=== PATIENT | female | born 1960 | race Caucasian/White ===

== ENCOUNTER → 2018-08-18 | Outpatient (CLI) | payer OTHER | LOC: M RAD 09:16 | DX: Z12.31 Encounter for screening mammogram for malignant neoplasm of breast (principal) | CPT/HCPCS: 77067 ==

== ENCOUNTER 2019-09-07 20:09 | Emergency (ER) | payer OTHER ==
[~2019-09-07] VITALS: Ht 167.6 cm; Wt 63.6 kg
[2019-09-07] MEDS ORDERED: NS 1,000 ML IV ONE (21:00)
[2019-09-07] MEDS ORDERED: METOCLOPRAMIDE INJ 10MG/2ML VIAL (J2765) IV ONE (21:00)
[2019-09-07] MEDS ORDERED: ACETAMINOPHEN 500 MG TAB PO ONE (21:00)
[2019-09-07] MEDS ORDERED: KETOROLAC 30 MG/ML VIAL (J1885) IV ONE (21:00)
[2019-09-07] MEDS ORDERED: diphenhydrAMINE INJ 50MG/ML VIAL (J1200) IV ONE (21:00)
[2019-09-07 21:37] LABS: BASO % 0.2 % (0.0-1.0); HEMATOCRIT 41.2 % (36.0-47.0); HEMOGLOBIN 13.6 g/dl (12.0-15.5); LYMPH # 1.2 10^3/uL (1.5-5.0); LYMPH % 10.3 % (24.0-44.0); MEAN CORPUSCULAR HEMOGLOBIN 29.9 pg (27.0-33.0); MEAN CORPUSCULAR VOLUME 90.5 fl (80.0-96.0); MONO # 0.3 10^3/uL (0.0-0.8); MONO % 2.9 % (0.0-5.0); NEUTROPHILS # 9.7 10^3/uL (1.5-8.5); NEUTROPHILS % 86.1 % (36.0-66.0); PLATELET COUNT, AUTOMATED 279 10^3/uL (150-450); RED BLOOD COUNT 4.55 10^6/uL (4.00-5.40); WHITE BLOOD COUNT 11.3 10^3/uL (4.0-10.0)
[2019-09-07] MEDS ORDERED: ATOR1TAB19 PO (21:39)
[2019-09-07] MEDS ORDERED: ESTR3TA PO (21:39)
[2019-09-07] MEDS ORDERED: LISI10TA4 PO (21:39)
[2019-09-07] MEDS ORDERED: SYNT100T PO (21:39)
[2019-09-07 22:39] VITALS: BP 139/82
== END 2019-09-07 22:52 | disposition home or self-care (01) ==
LOC: M ED 20:09
DX: G43.909 Migraine, unspecified, not intractable, without status migrainosus (principal); I10 Essential (primary) hypertension; F17.200 Nicotine dependence, unspecified, uncomplicated; Z79.890 Hormone replacement therapy; Z79.899 Other long term (current) drug therapy; Z88.8 Allergy status to other drugs, medicaments and biological substances
CPT/HCPCS: 85025; 96361; 96374; 96375; 99284; J1200; J1885; J2765

== ENCOUNTER → 2019-11-09 | Outpatient (CLI) | payer OTHER ==
[~2019-11-09] MED LIST: ATOR1TAB19 PO; ESTR3TA PO; LISI10TA4 PO; SYNT100T PO
--- NOTE | 2019-11-09 12:19 | REPMRS ---
Patient History The patient states she had a clinical breast exam in 2018. No known family history of cancer. Taking estrogen for 26 years. Taking unspecified hormones for 36 years. Digital Woman Screen Mammo: November 09, 2019 - Exam #: [id number] Bilateral CC and MLO view(s) were taken. Technologist: Sonali Cancino, Technologist Prior study comparison: August 18, 2018, bilateral digital mammo screening bilat, performed at [facility]. September 17, 2016, bilateral digital mammo screening bilat, performed at [facility]. FINDINGS: There are scattered fibroglandular densities. There has been no change in the appearance of the mammogram from the prior studies. There is a mild amount of scattered fibroglandular density which is fairly symmetric. There is no interval development of dominant mass, architectural distortion, or grouped microcalcification suggestive of malignancy. Assessment: BI-RADS/ACR category 1 mammogram. Negative Mammogram. Recommendation Routine screening mammogram of both breasts in 1 year (for women over age 40). This patient's Lifetime Breast Cancer Risk is estimated at 5.6 %. This mammogram was interpreted with the aid of an FDA-approved computer-aided dectection system. Electronically Signed By: Kj Yanes MD 11/09/19 [id number]
== END ==
LOC: M WHC 10:59
PROVIDERS: ATTEND Family Medicine
DX: Z12.31 Encounter for screening mammogram for malignant neoplasm of breast (principal)

== ENCOUNTER 2020-05-09 21:34 | Emergency (ER) | payer OTHER ==
[~2020-05-09] VITALS: Ht 165.1 cm; Wt 68.2 kg
[2020-05-09 22:24] LABS: HEMATOCRIT 40.6 % (36.0-47.0); HEMOGLOBIN 13.7 g/dl (12.0-15.5); MEAN CORPUSCULAR HEMOGLOBIN 30.6 pg (27.0-33.0); MEAN CORPUSCULAR HGB CONC 33.7 g/dl (32.0-36.5); MEAN CORPUSCULAR VOLUME 90.8 fl (80.0-96.0); PLATELET COUNT, AUTOMATED 307 10^3/uL (150-450); RED BLOOD COUNT 4.47 10^6/uL (4.00-5.40); WHITE BLOOD COUNT 11.2 10^3/uL (4.0-10.0)
[2020-05-09 22:50] LABS: BLOOD UREA NITROGEN 22 MG/DL (7-18); C REACTIVE PROTEIN QUANTITATIV < 0.30 MG/DL (0.00-0.30); CALCIUM LEVEL 9.7 MG/DL (8.8-10.2); CARBON DIOXIDE LEVEL 25 MEQ/L (21-32); CHLORIDE LEVEL 107 MEQ/L (98-107); GLOMERULAR FILTRATION RATE > 60.0 (>45); GLUCOSE, FASTING 145 MG/DL (70-100); POTASSIUM SERUM 4.1 MEQ/L (3.5-5.1); SODIUM LEVEL 137 MEQ/L (136-145)
[2020-05-09 22:55] LABS: ERYTHROCYTE SEDIMENTATION RATE 2 mm/hr (0-30)
[2020-05-09] MEDS ORDERED: diphenhydrAMINE 50MG/ML VIAL (J1200) IV STA (23:28)
[2020-05-09] MEDS ORDERED: KETOROLAC 30 MG/ML 1ML VIAL IV ONE (23:30)
[2020-05-09] MEDS ORDERED: ONDANSETRON 4MG/2ML VIAL IV ONE (23:30)
[2020-05-09] MEDS ORDERED: NS 1,000 ML IV ONE (23:30)
[2020-05-10] MEDS ORDERED: METOCLOPRAMIDE INJ 10MG/2ML VIAL (J2765 PER 1) IV ONE (00:45)
[2020-05-10 01:26] VITALS: BP 160/69
== END 2020-05-10 01:44 | disposition home or self-care (01) ==
LOC: M ED 21:34
DX: G43.909 Migraine, unspecified, not intractable, without status migrainosus (principal); E03.9 Hypothyroidism, unspecified; Z79.899 Other long term (current) drug therapy; Z88.8 Allergy status to other drugs, medicaments and biological substances
CPT/HCPCS: 80048; 85027; 85652; 86140; 96361; 96374; 96375; 99284; J1200; J1885; J2405; J2765

== ENCOUNTER → 2020-09-03 | Outpatient (REF) | payer OTHER ==
[2020-09-03 13:35] LABS: APPEARANCE, URINE CLEAR (CLEAR); BACTERIA, URINE AUTO NEGATIVE (NEGATIVE); BILIRUBIN, URINE AUTO NEGATIVE (NEGATIVE); BLOOD, URINE BLOOD 1+ (NEGATIVE); COLOR, URINE YELLOW (YELLOW); GLUCOSE, URINE (UA) AUTO NEGATIVE (NEGATIVE); KETONE, URINE AUTO NEGATIVE (NEGATIVE); LEUKOCYTE ESTERASE, URINE AUTO NEGATIVE (NEGATIVE); MUCUS, URINE SMALL (NEGATIVE); NITRITE, URINE AUTO NEGATIVE (NEGATIVE); PROTEIN, URINE AUTO NEGATIVE (NEGATIVE); RBC, URINE AUTO 2 /HPF (0-3); SQUAMOUS EPITHELIAL CELL UR AU 0 /HPF (0-6); UROBILINOGEN, URINE AUTO 0.2 mg/dL (0.0-2.0); WBC, URINE AUTO 0 /HPF (0-3)
[2020-09-03 13:36] LABS: BASO % 0.6 % (0.0-1.0); EOS # 0.1 10^3/uL (0.0-0.5); EOS % 1.2 % (0.0-3.0); HEMATOCRIT 42.5 % (36.0-47.0); HEMOGLOBIN 13.8 g/dl (12.0-15.5); MEAN CORPUSCULAR HGB CONC 32.5 g/dl (32.0-36.5); MEAN CORPUSCULAR VOLUME 92.4 fl (80.0-96.0); MONO # 0.6 10^3/uL (0.0-0.8); MONO % 9.4 % (0.0-5.0); NEUTROPHILS # 3.9 10^3/uL (1.5-8.5); NEUTROPHILS % 58.5 % (36.0-66.0); PLATELET COUNT, AUTOMATED 261 10^3/uL (150-450); WHITE BLOOD COUNT 6.6 10^3/uL (4.0-10.0)
[2020-09-03 14:03] LABS: ERYTHROCYTE SEDIMENTATION RATE 3 mm/hr (0-30)
[2020-09-03 14:05] LABS: CREATININE,RANDOM URINE 98.1 MG/DL
[2020-09-03 14:07] LABS: C REACTIVE PROTEIN QUANTITATIV < 0.30 MG/DL (0.00-0.30); COMPLEMENT C3 99 MG/DL (90-180); COMPLEMENT C4 24 MG/DL (10-40)
[2020-09-04 10:58] LABS: DRVV SCREEN 34.8 SEC
[2020-09-04 11:03] LABS: PTT LUPUS TYPE ANTICOAG SCREEN 0.9 (0-1.2)
[2020-09-06 06:07] LABS: ANA (HEP2) Positive (.); ANTI CENTROMERE ANTIBODY <0.2 AI (0.0-0.9); ANTI DS-DNA AB Positive (Negative); ANTI SCLERODERMA ANTIBODIES <0.2 AI (0.0-0.9); ANTI-HISTONE ANTIBODIES 0.3 Units (0.0-0.9); BETA-2 GLYCOPROTEIN I ABY IGA <9 (0-25); BETA-2 GLYCOPROTEIN I ABY IGG <9 (0-20); BETA-2 GLYCOPROTEIN I ABY IGM <9 (0-32); CARDIOLIPIN IGA ANTIBODY <9 APL U/mL (0-11); CARDIOLIPIN IGG ANTIBODY <9 GPL U/mL (0-14); CARDIOLIPIN IGM ANTIBODY <9 MPL U/mL (0-12); COMPLEMENT TOTAL (CH50) > 60 U/mL (>41); SSA SJOGRENS A <0.2 AI (0.0-0.9); SSB SJOGRENS B <0.2 AI (0.0-0.9)
== END ==
LOC: M SFHCRHEU 10:32
PROVIDERS: ATTEND Internal Medicine
DX: R76.8 Other specified abnormal immunological findings in serum (principal)
CPT/HCPCS: 81001; 82570; 83520; 85025; 85652; 85730; 86038; 86140; 86146; 86147; 86160; 86162; 86225; 86235; 86255; G0463

== ENCOUNTER 2020-10-25 16:11 | Observation (INO) | payer OTHER ==
[~2020-10-25] VITALS: Ht 167.6 cm; Wt 130.0 kg
[~2020-10-25 16:11] MED LIST changes: +LISI10TA22 PO; -LISI10TA4 PO
[2020-10-25] MEDS ORDERED: CELE1CAP9 PO (16:20)
--- OUTSIDE RECORDS SUMMARY | 2020-10-25 16:20 | CCD ---
Author Author [facility] Organization [facility] Address Unknown Phone Unavailable Care Team Providers Care Investment Representative Name Role Phone Kaila Lr PROBLEMS Type Condition ICD9-CM Code [id number] Code Onset Dates Condition S tatus SNOMED Code Notes Problem Osteoarthritis of hand, unsp ecified laterality, unspecified osteoarthritis type M19.049 Active Problem Generalized osteoarthritis M15.9 Active 8999 ALLERGIES Allergen (clinical drug ingredient) Drug/Non Drug Allergy do cumented on EMR Reaction Allergy Type Onset Date Status sumatriptan Imitrex([facility] Code:[address]-12) Possible seizure Drug All ergy Active Wheat/Grain Unknown Non Drug Allergy Active Mold Unknown Non Drug Allergy Active ENCOUNTERS from 1959 to 2020-09-12 Encounter Location Date Provider Diagnosis [facility] Rheumatology [address] [place] [address] Aug, Kaila Lr 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 No Points 0 Interpretation Negative Tobacco Use: Question Answer Notes Are you a: current smoker Smokes inconsistentl y - 4x/year REASON FOR REFERRAL No Information VITAL SIGNS Weight 137.8 lbs Aug, Weight-kg 62.5 kg Aug, Height 66 in Aug, BMI 22.24 kg/m2 Aug, Heart Rate 66 /min Aug, Respiratory Rate 18 /min Aug, Temperature 97.0 degrees Fahrenheit Aug, Oximetry 97 Aug, Blood pressure systolic 132 mm Hg Aug, Blood pressure diastolic 86 mm Hg Aug, MEDICATIONS Medication SIG (Take, Route, Frequency, Duration) Notes Start Da te End Date Status Synthroid 100 MCG 1 tablet in the morning on a n empty stomach Orally Once a day for 30 day(s) Active Lisinopril 10 MG 1 tablet Orally Once a day for 30 day(s) Active Acetaminophen 500 MG 2 capsule as needed Orally every as needed for 30 days Aug, Active Turmeric - as directed Active Atorvastatin Calcium 10 MG 1 tablet Orally Once a day for 30 day(s) Active Celecoxib 200 MG 1 capsule with food Orally Twice a day for 30 days Active Ibuprofen 200 MG 1 tablet with food or milk as needed Ora lly Three times a day Active Famotidine 40 MG 1 tablet at bedtime Orally Once a day for 30 day(s) Active PROCEDURES No Information RESULTS REASON FOR VISIT Patient is present today for a new patient appointment, c/o bumps on all joints, c/o body pain all over MEDICAL (GENERAL) HISTORY Type Description Date Medical History Hypothyroidism Medical History Hyperlipidemia Medical History Migraines / Headaches Medical History Hypertension 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 Medical History Osteoarthritis Medical History Menopausal disorder Medical History Seizure (2010) Medical History Colon polyps Medical History Bilateral Carpal tunnel syndrome Medical History of first child (1983) Medical History of second child (1985) Medical History MRI right shoulder(04/20/2013) Medical History MRI left knee (06/16/2004) Medical History X-ray hip-DDD (07/20/2013) Medical History Total Hysterectomy Surgical History Left shoulder repair 01/31/2018 Surgical History Colonoscopy-negative results, done every 5 years 02/2016 Surgical History Total hysterectomy and oopherectomy Surgical History Right and left shoulder/ numerous Surgical History Left knee replacement Surgical History Carpal tunnel bilateral wrist 2001 Surgical History Right ovary removed 1978 Surgical History Left ovary cyst removed 1984 Surgical History Left shoulder Synovial chondromatosis di agnosis 11/03/[address] right clavicle 01/26/2002 Surgical History Second left shoulder surgery 2018 Surgical History Thyroid 11/23/2018 Surgical History Thyroid 1989 Hospitalization History Surgical related Hospitalization History Migraine 10/2018 Hospitalization History Migrain 04/2020 Goals Section No Information Health Concerns No Information MEDICAL EQUIPMENT No Information MENTAL STATUS No Information FUNCTIONAL STATUS No Information ASSESSMENTS Encounter Date Diagnosis Assessment Notes Treatment Notes Treatm ent Clinical Notes Aug, 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 Explained the diagnosis of Synovial Chondromatosis in detail. This clinical presentation is atypical as it appears that there is synovial chondromatosis in more than 1 joint (confirmed evidence in the bilateral shoulders). - During the office visit, I had a long discussion and counseling session concerning the Synovial Chondromatosis. Counseling provided on the disease course, symptomatology, complications, and prognosis of Synovial Chondromatosis. The underlying etiology of the Synovial Chondromatosis is unclear. Clarified with the patient that synovial chondromatosis is not associated with rheumatoid arthritis and is not rheumatoid variant. - Discussed the importance of a healthy, well balanced life style and making healthy choices. The definitive treatment of synovial chondromatosis would be removal of the synovium, which would require a surgical intervention. - Discussed the possible current treatment options for the joint symptomatology; will monitor medically, at this time. Recommended the increase of Celebrex 200 mg daily to 200 mg twice daily, at this time. - Based on my current understanding of the disease, I am unaware that there is process to change the course of the disease. The patient noted that when she was on the trial of Plaquenil, her overall joint symptoms improved. However, it is unclear that the synovial chondromatosis would benefit from immunosuppressive therapy. Discussed with the patient that prior to the next appointment, will investigate any evidence to support this treatment modality. - The patient was instructed to manage the symptomatology and monitor closely for worsening symptoms. She was agreeable and expressed understanding of the plan. All questions and concerns were addressed. Aug, Positive DILMA (antinuclear antibody) (ICD-10 - R7 6.8) Will perform further investigation of possible underlying connective tissue disease, given the findings of positive DILMA (1:320) and history of positive ARMATURE CONNECTOR antibodies. Will repeat the DILMA to r/o false positive and obtain CBC w/ diff, complement levels (C3, C4, CH50), anti-castro, anti-dsDNA, SSA (anti-Ro), SSB (anti-La), ribonucleoprotein (ARMATURE CONNECTOR), centromere antibodies, anti-histone, anti-topoisomerase I, antiphospholipid antibodies, urinalysis, and urine protein:creatinine ratio. Aug, Generalized osteoarthritis (ICD-10 - M15.9) Symptomatic osteoarthritis is present in multiple joints. Counseling provided on the disease course, symptomatology, complications, and prognosis of osteoarthritis. Recommend participation in a consistent exercise regimen and weight management for pain relief associated with osteoarthritis, focusing on improvement in quality of life for pain relief associated with osteoarthritis. Given the significant pain in the lower back, will perform further imaging (lumbar x-ray). Discussed the importance of a healthy, well balanced life style and making healthy choices. Recommended the initiation of Tylenol 1000 mg twice daily as needed for improvement in the joint pain, related to the OA. Information concerning osteoarthritis provided to the patient. She was agreeable and expressed understanding of the plan. All questions and concerns were addressed. Aug, Osteoarthritis of hand, unsp ecified laterality, unspecified osteoarthritis type (ICD-10 - M19.049) Clinical presentation consistent with bilateral osteoarthritis of the hands. Counseling provided on the disease course and symptomatology of the hand osteoarthritis. Reviewed the x-rays of the hands to evaluate the severity of OA; there are lucencies in the x-rays. However, the clinical presentation is not consistent with Rheumatoid Arthritis. Previous MRI of the left hand when there was a concern for lucencies revealed the lucencies were artifact. At this time, given the lack of clinical presentation associated with an erosive inflammatory arthritis, will defer further imaging. Discussed with the patient that if the symptoms worsened, then would reconsider further hand imaging for investigation. Information on hand exercises provided to the patient for further education. Recommended the performance of the hand exercises for 5 minutes at night. If conservative methods fail, then will consider sending to occupational therapy to evaluate the ability to perform activities of daily living (ADLs), instruction in joint protection techniques, to provide assistive devices to help perform ADLs, and to instruct in use of thermal modalities. The patient had multiple questions about her clinical presentation. She was agreeable and expressed understanding of the plan. All questions and concerns were addressed. Aug, Hip pain (ICD-10 - M25.559) Discussed with the patient that there is low clinical suspicion of synovial chondromatosis in the hips. Given the bilateral hip pain, will obtain imaging for the evaluation of the symptomatology, concern for osteoarthritis of the hips. Of note, on the physical examination, no evidence of tumors or nodules palpated in the hip region. Aug, Other - More than 50% of the 105 minute visit was spent in patient education, counseling, and coordination of care. PLAN OF TREATMENT Medication Medication Name Sig Start Date Stop Date Acetaminophen 500 MG 2 capsule as needed Orally every as nee ded for 30 days Aug, Celecoxib 200 MG 1 capsule with food Orally Twice a day for 30 d ays Treatment Notes Assessment Notes Clinical Notes Synovial chondromatosis Clinical present ation is consistent with synovial chondromatosis, which is a rare, non-cancerous tumor that arises in the lining of a joint (most commonly the knee joint). Explained the diagnosis of Synovial Chondromatosis in detail. This clinical presentation is atypical as it appears that there is synovial chondromatosis in more than 1 joint (confirmed evidence in the bilateral shoulders).- During the office visit, I had a long discussion and counseling session concerning the Synovial Chondromatosis. Counseling provided on the disease course, symptomatology, complications, and prognosis of Synovial Chondromatosis. The underlying etiology of the Synovial Chondromatosis is unclear. Clarified with the patient that synovial chondromatosis is not associated with rheumatoid arthritis and is not rheumatoid variant.- Discussed the importance of a healthy, well balanced life style and making healthy choices. The definitive treatment of synovial chondromatosis would be removal of the synovium, which would require a surgical intervention.- Discussed the possible current treatment options for the joint symptomatology; will monitor medically, at this time. Recommended the increase of Celebrex 200 mg daily to 200 mg twice daily, at this time.- Based on my current understanding of the disease, I am unaware that there is process to change the course of the disease. The patient noted that when she was on the trial of Plaquenil, her overall joint symptoms improved. However, it is unclear that the synovial chondromatosis would benefit from immunosuppressive therapy. Discussed with the patient that prior to the next appointment, will investigate any evidence to support this treatment modality.- The patient was instructed to manage the symptomatology and monitor closely for worsening symptoms. She was agreeable and expressed understanding of the plan. All questions and concerns were addressed. Positive DILMA (antinuclear antibody) Will perform further investigation of possible underlying connective tissue disease, given the findings of positive DILMA (1:320) and history of positive ARMATURE CONNECTOR antibodies. Will repeat the DILMA to r/o false positive and obtain CBC w/ diff, complement levels (C3, C4, CH50), anti- castro, anti-dsDNA, SSA (anti-Ro), SSB (anti-La), ribonucleoprotein (ARMATURE CONNECTOR), centromere antibodies, anti-histone, anti-topoisomerase I, antiphospholipid antibodies, urinalysis, and urine protein:creatinine ratio. Generalized osteoarthritis Symptomatic o steoarthritis is present in multiple joints. Counseling provided on the disease course, symptomatology, complications, and prognosis of osteoarthritis. Recommend participation in a consistent exercise regimen and weight management for pain relief associated with osteoarthritis, focusing on improvement in quality of life for pain relief associated with osteoarthritis. Given the significant pain in the lower back, will perform further imaging (lumbar x-ray). Discussed the importance of a healthy, well balanced life style and making healthy choices. Recommended the initiation of Tylenol 1000 mg twice daily as needed for improvement in the joint pain, related to the OA. Information concerning osteoarthritis provided to the patient. She was agreeable and expressed understanding of the plan. All questions and concerns were addressed. Osteoarthritis of hand, unspecified laterality, unspec ified osteoarthritis type Clinical presentation consistent with bi lateral osteoarthritis of the hands. Counseling provided on the disease course and symptomatology of the hand osteoarthritis. Reviewed the x-rays of the hands to evaluate the severity of OA; there are lucencies in the x-rays. However, the clinical presentation is not consistent with Rheumatoid Arthritis. Previous MRI of the left hand when there was a concern for lucencies revealed the lucencies were artifact. At this time, given the lack of clinical presentation associated with an erosive inflammatory arthritis, will defer further imaging. Discussed with the patient that if the symptoms worsened, then would reconsider further hand imaging for investigation. Information on hand exercises provided to the patient for further education. Recommended the performance of the hand exercises for 5 minutes at night. If conservative methods fail, then will consider sending to occupational therapy to evaluate the ability to perform activities of daily living (ADLs), instruction in joint protection techniques, to provide assistive devices to help perform ADLs, and to instruct in use of thermal modalities. The patient had multiple questions about her clinical presentation. She was agreeable and expressed understanding of the plan. All questions and concerns were addressed. Hip pain Discussed with the p atient that there is low clinical suspicion of synovial chondromatosis in the hips. Given the bilateral hip pain, will obtain imaging for the evaluation of the symptomatology, concern for osteoarthritis of the hips. Of note, on the physical examination, no evidence of tumors or nodules palpated in the hip region. Treatment Notes Test Name Order Date PROTEIN, URINE 2020-09-12 [facility] Antibody (NOT ORDERABLE) 2020-09-12 ARMATURE CONNECTOR Antibody (Non-Orderable) 2020-09-12 [facility] HIPS BILAT 2 VIEW W/AP PELVIS 2020-09-12 [facility] Spine, Lumbosacral w/flex-ext 2020-09-12 Next Appt Details 6 Weeks Reason:Synovial Chondromatosis, Generalized Osteoarthritis Provider Name:Kaila Trena Lr, 2020-10-15 12:15:00 AM, [address] [place] [address], [id number], Follow Up:6 WeeksSynovial Chondromatosis, Generalized Osteoarthritis Insurance Providers Payer Name Payer Address Payer Phone Insured Name Patient Relati onship to Insured Coverage Start Date Coverage End Date [facility] [employer] [address] [place] [address] DANNY EATON
--- OUTSIDE RECORDS SUMMARY | 2020-10-25 16:20 | CCD ---
Author Author [facility] Organization [facility] Address Unknown Phone Unavailable Care Team Providers Care Bootmaker Name Role Phone Kaila Lr PROBLEMS Type Condition ICD9-CM Code [id number] Code Onset Dates Condition S tatus SNOMED Code Notes Problem Osteoarthritis of hand, unsp ecified laterality, unspecified osteoarthritis type M19.049 Active Problem Generalized osteoarthritis M15.9 Active 8999 ALLERGIES Allergen (clinical drug ingredient) Drug/Non Drug Allergy do cumented on EMR Reaction Allergy Type Onset Date Status sumatriptan Imitrex([facility] Code:[address]-11) Possible seizure Drug All ergy Active Wheat/Grain Unknown Non Drug Allergy Active Mold Unknown Non Drug Allergy Active ENCOUNTERS from 1960 to 2020-10-14 Encounter Location Date Provider Diagnosis [facility] Rheumatology [address] [place] [address] Sep, Kaila Lr Positive DILMA (antinuclear antibody) R76. 8 IMMUNIZATIONS No Information SOCIAL HISTORY Tobacco Use: [...] REASON FOR REFERRAL No Information VITAL SIGNS No information MEDICATIONS Medication SIG (Take, Route, Frequency, Duration) [...] 30 day(s) Active PROCEDURES No Information RESULTS No Results REASON FOR VISIT Missing lab results MEDICAL (GENERAL) HISTORY Type Description Date Medical [...] 01/26/2002 Surgical History Second left shoulder surgery 2017 Surgical History Thyroid 11/23/2018 Surgical History Thyroid 1989 Hospitalization History Surgical related Hospitalization History Migraine 10/2018 Hospitalization History Migrain 04/2020 Goals Section No Information Health Concerns No Information MEDICAL EQUIPMENT No Information MENTAL STATUS No Information FUNCTIONAL STATUS No Information ASSESSMENTS Encounter Date Diagnosis Assessment Notes Treatment Notes Treatm ent Clinical Notes Sep, Positive DILMA (antinuclear antibody) (ICD-10 - R7 6.8) PLAN OF TREATMENT Medication Medication Name Sig Start Date Stop Date Acetaminophen 500 MG 2 capsule as needed Orally every as nee ded for 30 days Aug, Celecoxib 200 MG 1 capsule with food Orally Twice a day for 30 d ays Treatment Notes Test Name Order Date TOTAL PROTEIN,RANDOM URINE 2020-10-14 Anti Redman(Sm) AB 2020-10-14 Anti-U1 DISTILLER AB 2020-10-14 Next Appt Details Provider Name:Kaila Lr, 2020-10-28 04:45:00 PM, [address] [place] [address], [id number], Insurance Providers Payer Name Payer Address Payer Phone Insured Name Patient Relati onship to Insured Coverage Start Date Coverage End Date [employer] [address] [place] [address] DANNY EATON self
--- OUTSIDE RECORDS SUMMARY | 2020-10-25 16:21 | CCD ---
Author Author [facility] Organization [facility] Address Unknown Phone Unavailable Care Team Providers Care Supervisor Computer Operations Name Role Phone GILDARDO EWING [facility] Unavailable Unava ilable Kris MONDRAGON MD Unavailable Unavailable Kris MONDRAGON MD Unavailable Unavailable Kris MONDRAGON MD Unavailable Unavailable Kris MONDRAGON MD Unavailable Unavailable Kris MONDRAGON MD Unavailable Unavailable Kris MONDRAGON MD Unavailable Unavailable Kris MONDRAGON MD Unavailable Unavailable Kris MONDRAGON MD Unavailable Unavailable Kris MONDRAGON MD Unavailable Unavailable Kris MONDRAGON MD Unavailable Unavailable Kris MONDRAGON MD Unavailable Unavailable Kris MONDRAGON MD Unavailable Unavailable Kris MONDRAGON MD Unavailable Unavailable Kris MONDRAGON MD Unavailable Unavailable Kris MONDRAGON MD Unavailable Unavailable Kris MONDRAGON MD Unavailable Unavailable Kris MONDRAGON MD Unavailable Unavailable Kris MONDRAGON MD Unavailable Unavailable Kris MONDRAGON MD Unavailable Unavailable Kris MONDRAGON MD Unavailable Unavailable Kris MONDRAGON MD Unavailable Unavailable Kris MONDRAGON MD Unavailable Unavailable Kris MONDRAGON MD Unavailable Unavailable Kris MONDRAGON MD Unavailable Unavailable Kris MONDRAGON MD Unavailable Unavailable Kris MONDRAGON MD Unavailable Unavailable Kris MONDRAGON MD Unavailable Unavailable Kris MONDRAGON MD Unavailable Unavailable Kris MONDRAGON MD Unavailable Unavailable Kris MONDRAGON MD Unavailable Unavailable Kris MONDRAGON MD Unavailable Unavailable Kris MONDRAGON MD Unavailable Unavailable Kris MONDRAGON MD Unavailable Unavailable Kris MONDRAGON MD Unavailable Unavailable Kris MONDRAGON MD Unavailable Unavailable Kris MONDRAGON MD Unavailable Unavailable Kris MONDRAGON MD Unavailable Unavailable Kris MONDRAGON MD Unavailable Unavailable Kris MONDRAGON MD Unavailable Unavailable Kris MONDRAGON MD Unavailable Unavailable Kris MONDRAGON MD Unavailable Unavailable Kris MONDRAGON MD Unavailable Unavailable Kris MONDRAGON MD Unavailable Unavailable Kris MONDRAGON MD Unavailable Unavailable Kris MONDRAGON MD Unavailable Unavailable Kris MONDRAGON MD Unavailable Unavailable Kris MONDRAGON MD Unavailable Unavailable Kris MONDRAGON MD Unavailable Unavailable Kris MONDRAGON MD Unavailable Unavailable Kris MONDRAGON MD Unavailable Unavailable Kris MONDRAGON MD Unavailable Unavailable Kris MONDRAGON MD Unavailable Unavailable Kris MONDRAGON MD Unavailable Unavailable Kris MONDRAGON MD Unavailable Unavailable Kris MONDRAGON MD Unavailable Unavailable Krsi MONDRAGON MD Unavailable Unavailable Kris MONDRAGON MD Unavailable Unavailable Kris MONDRAGON MD Unavailable Unavailable Kris MONDRAGON MD Unavailable Unavailable Kris MONDRAGON MD Unavailable Unavailable Kris MONDRAGON MD Unavailable Unavailable Kris MONDRAGON MD Unavailable Unavailable Kris MONDRAGON MD Unavailable Unavailable Kris MONDRAGON MD Unavailable Unavailable Kris MONDRAGON MD Unavailable Unavailable Kris MONDRAGON MD Unavailable Unavailable Kris MONDRAGON MD Unavailable Unavailable Kris MONDRAGON MD Unavailable Unavailable Kris MONDRAGON MD Unavailable Unavailable Kris MONDRAGON MD Unavailable Unavailable Kris MONDRAGON MD Unavailable Unavailable Kris MONDRAGON MD Unavailable Unavailable Kris MONDRAGON MD Unavailable Unavailable Kirs MONDRAGON MD Unavailable Unavailable Kris MONDRAGON MD Unavailable Unavailable Kris MONDRAGON MD Unavailable Unavailable Kris MONDRAGON MD Unavailable Unavailable Kris MONDRAGON MD Unavailable Unavailable Kris MONDRAGON MD Unavailable Unavailable Kris MONDRAGON MD Unavailable Unavailable Kris MONDRAGON MD Unavailable Unavailable Kris MONDRAGON MD Unavailable Unavailable Kris MONDRAGON MD Unavailable Unavailable Kris MONDRAGON MD Unavailable Unavailable Kris MONDRAGON MD Unavailable Unavailable Kris MONDRAGON MD Unavailable Unavailable Kris MONDRAGON MD Unavailable Unavailable Kris MONDRAGON MD Unavailable Unavailable Kris MONDRAGON MD Unavailable Unavailable Kris MONDRAGON MD Unavailable Unavailable Kris MONDRAGON MD Unavailable Unavailable Kris MONDRAGON MD Unavailable Unavailable Kris MONDRAGON MD Unavailable Unavailable Kris MONDRAGON MD Unavailable Unavailable Kris MONDRAGON MD Unavailable Unavailable Kris MONDRAGON MD Unavailable Unavailable Kris MONDRAGON MD Unavailable Unavailable Kris MCCLELLAN MD Unavailable Unavailable Kris MCCLELLAN MD Unavailable Unavailable Kris MCCLELLAN MD Unavailable Unavailable Kris MCCLELLAN MD Unavailable Unavailable Kris MCCLELLAN MD Unavailable Unavailable Kris MCCLELLAN MD Unavailable Unavailable Kris MCCLELLAN MD Unavailable Unavailable Kris MCCLELLAN MD Unavailable Unavailable Kris MCCLELLAN MD Unavailable Unavailable Kris MCCLELLAN MD Unavailable Unavailable Kris MCCLELLAN MD Unavailable Unavailable Kris MCCLELLAN MD Unavailable Unavailable Kris MCCLELLAN MD Unavailable Unavailable Kris MCCLELLAN MD Unavailable Unavailable Kris MCCLELLAN MD Unavailable Unavailable Krsi MCCLELLAN MD Unavailable Unavailable Kris MCCLELLAN MD Unavailable Unavailable Kris MCCLELLAN MD Unavailable Unavailable Kris MCCLELLAN MD Unavailable Unavailable Kris MCCLELLAN MD Unavailable Unavailable Kris MCCLELLAN MD Unavailable Unavailable Kris MCCLELLAN MD Unavailable Unavailable Kris MCCLELLAN MD Unavailable Unavailable Kris MCCLELLAN MD Unavailable Unavailable Kris MCCLELLAN MD Unavailable Unavailable Kris MCCLELLAN MD Unavailable Unavailable Kris MCCLELLAN MD Unavailable Unavailable Kris MCCLELLAN MD Unavailable Unavailable Kris MCCLELLAN MD Unavailable Unavailable Kris MCCLELLAN MD Unavailable Unavailable Kris MCCLELLAN MD Unavailable Unavailable Kris MCCLELLAN MD Unavailable Unavailable Kris MCCLELLAN MD Unavailable Unavailable Kris MCCLELLAN MD Unavailable Unavailable Kris MCCLELLAN MD Unavailable Unavailable Kris MCCLELLAN MD Unavailable Unavailable Kris MCCLELLAN MD Unavailable Unavailable Kris MCCLELLAN MD Unavailable Unavailable Kris MCCLELLAN MD Unavailable Unavailable Kris MCCLELLAN MD Unavailable Unavailable Kris MCCLELLAN MD Unavailable Unavailable Kris MCCLELLAN MD Unavailable Unavailable Kris MCCLELLAN MD Unavailable Unavailable SETTERKris MD Unavailable Unavailable SETTERKris MD Unavailable Unavailable SETTERKris MD Unavailable Unavailable SETTERKris MD Unavailable Unavailable SETTER, Kris SAMPSON MD Unavailable Unavailable SETTER, Kris SAMPSON MD Unavailable Unavailable SETTER, Kris SAMPSON MD Unavailable Unavailable SETTERKris MD Unavailable Unavailable SETTERKris MD Unavailable Unavailable SETTERKris MD Unavailable Unavailable SETTER, Kris SAMPSON MD Unavailable Unavailable SETTER, Kris SAMPSON MD Unavailable Unavailable SETTER, Kris SAMPSON MD Unavailable Unavailable SETTER, Kris SAMPSON MD Unavailable Unavailable SETTER, Kris SAMPSON MD Unavailable Unavailable SETTER, Kris SAMPSON MD Unavailable Unavailable SETTER, Kris SAMPSON MD Unavailable Unavailable SETTER, Kris SAMPSON MD Unavailable Unavailable SETTER, Kris SAMPSON MD Unavailable Unavailable SETTER, Kris SAMPSON MD Unavailable Unavailable SETTER, Kris SAMPSON MD Unavailable Unavailable SETTERKris MD Unavailable Unavailable SETTERKris MD Unavailable Unavailable SETTERKris MD Unavailable Unavailable SETTER, Kris SAMPSON MD Unavailable Unavailable SETTER, Kris SAMPSON MD Unavailable Unavailable SETTERKris MD Unavailable Unavailable SETTERKris MD Unavailable Unavailable SETTERKris MD Unavailable Unavailable SETTERKris MD Unavailable Unavailable SETTERKris MD Unavailable Unavailable SETTERKris MD Unavailable Unavailable SETTERKris MD Unavailable Unavailable SETTERKris MD Unavailable Unavailable SETTERKris MD Unavailable Unavailable SETTERKris MD Unavailable Unavailable SETTERKris MD Unavailable Unavailable SETTERKris MD Unavailable Unavailable SETTERKris MD Unavailable Unavailable SETTERKris MD Unavailable Unavailable SETTERKris MD Unavailable Unavailable SETTERKris MD Unavailable Unavailable SETTERKris MD Unavailable Unavailable SETTERKris MD Unavailable Unavailable SETTERKris MD Unavailable Unavailable SETTERKris MD Unavailable Unavailable SETTERKris MD Unavailable Unavailable SETTERKris MD Unavailable Unavailable SETTERKris MD Unavailable Unavailable SETTERKris MD Unavailable Unavailable SETTERKris MD Unavailable Unavailable SETTERKris MD Unavailable Unavailable SETTERKris MD Unavailable Unavailable SETTERKris MD Unavailable Unavailable SETTERKris MD Unavailable Unavailable SETTERKris MD Unavailable Unavailable SETTER, Kris SAMPSON MD Unavailable Unavailable SETTER, Kris SAMPSON MD Unavailable Unavailable SETTER, Kris SAMPSON MD Unavailable Unavailable SETTER, Kris SAMPSON MD Unavailable Unavailable SETTER, Kris SAMPSON MD Unavailable Unavailable SETTER, Kris SAMPSON MD Unavailable Unavailable SETTER, Kris SAMPSON MD Unavailable Unavailable SETTER, Kris SAMPSON MD Unavailable Unavailable NON-STAFF, PHYSICIAN Unavailable Unavailable JOSH CORNELIUS M.D. Unavailable JOSH CORNELIUS M.D. Unavailable JOSH CORNELIUS M.D. Unavailable Re-disclosure Warning The records that you are about to access may contain information from federally-assisted alcohol or drug abuse programs. If such information is present, then the following federally mandated warning applies: This information has been disclosed to you from records protected by federal confidentiality rules (42 CFR part 2). The federal rules prohibit you from making any further disclosure of this information unless further disclosure is expressly permitted by the written consent of the person to whom it pertains or as otherwise permitted by 42 CFR part 2. A general authorization for the release of medical or other information is NOT sufficient for this purpose. The Federal rules restrict any use of the information to criminally investigate or prosecute any alcohol or drug abuse patient.The records that you are about to access may contain highly sensitive health information, the redisclosure of which is protected by Article 27-F of the [facility] Public Health law. If you continue you may have access to information: Regarding HIV / AIDS; Provided by facilities licensed or operated by the [facility] Office of Mental Health; or Provided by the [facility] Office for People With Developmental Disabilities. If such information is present, then the following [facility] mandated warning applies: This information has been disclosed to you from confidential records which are protected by state law. State law prohibits you from making any further disclosure of this information without the specific written consent of the person to whom it pertains, or as otherwise permitted by law. Any unauthorized further disclosure in violation of state law may result in a fine or mcfp sentence or both. A general authorization for the release of medical or other information is NOT sufficient authorization for further disc losure. Allergies and Adverse Reactions Type Description Substance Reaction Status Data Source(s ) BRANDNAME IMITREX IMITREX [facility] Hospital Encounters Encounter Providers Location Date Indications Data Source(s ) Outpatient Attender: JOSH CORNELIUS M.D.Director Oracle: ELDER DE JESUS NON-STAFF 10/12/2020 01:00:00 PM EST - 10/12/2020 02:00:00 PM EST [facility] Patient discharged. Unknown [address] [facility] [address] 10/11/2020 12:00:00 AM EST eCW1 ([facility]) Outpatient [address] [facility] [address] 09/03/2020 12:00:00 AM EST eCW1 ([facility]) Outpatient Referrer: CAMILLA MCCLELLAN MD 11/16/2019 07:23:00 P M EST [facility] Attender: ARELI MONDRAGON MDReferrer: [facility] [place] [facility] 11/08/2019 08:20:02 PM EST [facility] Attender: ARELI MONDRAGON MDReferrer: [facility] [place] [facility] 11/08/2019 08:20:02 PM EST [facility] Attender: ARELI MONDRAGON MDReferrer: [facility] [place] [facility] 11/08/2019 08:20:02 PM EST [facility] Attender: ARELI MONDRAGON MDReferrer: [facility] [place] [facility] 11/07/2019 08:20:02 PM EST [facility] Attender: ARELI MONDRAGON MDReferrer: [facility] [place] [facility] 09/25/2019 08:20:01 PM EST [facility] Medications Medication Brand Name Start Date Product Form Dose Route Admi nistrative Instructions Pharmacy Instructions Status Indications Reaction Description Data Source(s) Acetaminophen 500 MG UNK 09/03/2020 12:00:00 AM EST 2. 0 {capsule_as_needed} active Acetaminophen 500 MG eCW1 ([facility]) Acetaminophen 500 MG UNK 09/03/2020 12:00:00 AM EST 2. 0 {capsule_as_needed} active Acetaminophen 500 MG eCW1 ([facility]) Insurance Providers Payer name Policy type / Coverage type Policy ID Covered republican ID Covered republican's relationship to lubin Policy Lubin Plan Information [employer]AST [employer]Y [id number] SP [id number] HUMANA [place] [id number] S [id number] EAST HUMANA [id number] SP [id number] Humana [id number] [employer]/ [id number] 0 [id number] [employer]/ [id number] 0 [id number] EAST HUMANA [id number] SP [id number] Radha [id number] U [id number] Self [id number] [employer] [place] [id number] SP [id number] HUMANA [place] O [id number] S [id number] HEALTHNET/ AD O [id number] S [id number] [employer] [place] O [id number] O [id number] U [id number] Self [id number] U [id number] Spouse [id number] [employer] [id number] 0 [id number] [employer] [place] [id number] HU2 [id number] HEALTH[employer]/ AD P UNAVAILABLE P UNAVAILABLE Problems, Conditions, and Diagnoses Code Display Name Description Problem Type Effective Dates Data Source(s) M15.9 [id number] Generalized osteoarthritis Problem 0 12:00:00 AM EST eCW1 ([facility]) M19.049 [id number] Osteoarthritis of [place], unspecified laterality, unspecified osteoarthritis type Problem 09/03/2020 12:00:00 AM EST eCW1 ([facility]) Z23 Encounter for immunization Encounter for immunization Diagnosis 10/12/2020 01:00:00 PM EST [facility] Results ID Date Data Source ANTI SCLERODERMA ANTIBODIES 09/03/2020 12:00:00 AM EST eCW1 ([facility]) Name Value Range Interpretation Code Description Data Trish rce(s) Supporting Document(s) <0.2 0.0-0.9 eCW1 ([facility]) ID Date Data Source LUPUS TYPE ANTICOAGULANT SCREE 09/03/2020 12:00:00 AM EST eC W1 ([facility]) Name Value Range Interpretation Code Description Data Trish rce(s) Supporting Document(s) 0.9 0-1.2 eCW1 ([facility]) ID Date Data Source ANTI-SJOGRENS A&B ANTIBODIES 09/03/2020 12:00:00 AM EST eCW1 ([facility]) Name Value Range Interpretation Code Description Data Trish rce(s) Supporting Document(s) <0.2 0.0-0.9 eCW1 ([facility]) <0.2 0.0-0.9 eCW1 ([facility]) ID Date Data Source ANTI-HISTONE ANTIBODIES 09/03/2020 12:00:00 AM EST eCW1 ([facility]) Name Value Range Interpretation Code Description Data Trish rce(s) Supporting Document(s) 0.3 0.0-0.9 eCW1 ([facility]) ID Date Data Source DILMA TITER & PATTERN 09/03/2020 12:00:00 AM EST eCW1 ([facility]) Name Value Range Interpretation Code Description Data Trish rce(s) Supporting Document(s) Positive . eCW1 ([facility]) ID Date Data Source ANTI DOUBLE STRAND DNA CLOVIS 09/03/2020 12:00:00 AM EST eCW1 ( [facility]) Name Value Range Interpretation Code Description Data Trish rce(s) Supporting Document(s) eCW1 ([facility]) ID Date Data Source ANTI-CARDIOLIPIN ANTIBODIES 09/03/2020 12:00:00 AM EST eCW1 ([facility]) Name Value Range Interpretation Code Description Data Trish rce(s) Supporting Document(s) <9 0-14 eCW1 ([facility]) <9 0-11 eCW1 ([facility]) <9 0-12 eCW1 ([facility]) ID Date Data Source ANTI CENTROMERE ANTIBODY 09/03/2020 12:00:00 AM EST eCW1 ([facility]) Name Value Range Interpretation Code Description Data Trish rce(s) Supporting Document(s) <0.2 0.0-0.9 eCW1 ([facility]) ID Date Data Source COMPLEMENT TOTAL (CH50) 09/03/2020 12:00:00 AM EST eCW1 ([facility]) Name Value Range Interpretation Code Description Data Trish rce(s) Supporting Document(s) > 60 >41 eCW1 ([facility]) ID Date Data Source BETA-2 GLYCOPROTEIN 1 CLOVIS IVANNA 09/03/2020 12:00:00 AM EST eCW 1 ([facility]) Name Value Range Interpretation Code Description Data Trish rce(s) Supporting Document(s) <9 0-20 eCW1 ([facility]) <9 0-32 eCW1 ([facility]) <9 0-25 eCW1 ([facility]) ID Date Data Source CREATININE,RANDOM URINE 09/03/2020 12:00:00 AM EST eCW1 ([facility]) Name Value Range Interpretation Code Description Data Trish rce(s) Supporting Document(s) 98.1 eCW1 ([facility]) ID Date Data Source ERYTHROCYTE SEDIMENTATION RATE 09/03/2020 12:00:00 AM EST eC W1 ([facility]) Name Value Range Interpretation Code Description Data Trish rce(s) Supporting Document(s) 3 0-30 eCW1 ([facility]) ID Date Data Source UA URINALYSIS 09/03/2020 12:00:00 AM EST eCW1 ([facility]) Name Value Range Interpretation Code Description Data Trish rce(s) Supporting Document(s) eCW1 ([facility]) ID Date Data Source C REACTIVE PROTEIN QUANTITATIV (At [facility]) 09/03/2020 12:00 :00 AM EST eCW1 ([facility]) Name Value Range Interpretation Code Description Data Trish rce(s) Supporting Document(s) < 0.30 0.00-0.30 eCW1 ([facility]) ID Date Data Source CBC with Differential 09/03/2020 12:00:00 AM EST eCW1 ([facility]) Name Value Range Interpretation Code Description Data Trish rce(s) Supporting Document(s) 6.6 4.0-10.0 [facility]CW[facility] 42.5 36.0-47.0 eCW1 ([facility]) 13.8 12.0-15.5 eCW1 ([facility]) 4.60 4.00-5.40 eCW1 ([facility]) 92.4 80.0-96.0 eCW1 ([facility]) 261 150-450 eCW1 ([facility]) 12.3 11.5-14.5 eCW1 ([facility]) 58.5 36.0-66.0 eCW1 ([facility]) 32.5 32.0-36.5 eCW1 ([facility]) 30.0 27.0-33.0 eCW1 ([facility]) 0.6 0.0-1.0 eCW1 ([facility]) 30.0 24.0-44.0 eCW1 ([facility]) 1.2 0.0-3.0 eCW1 ([facility]) 9.4 0.0-5.0 eCW1 ([facility]) 2.0 1.5-5.0 eCW1 ([facility]) 0.0 0.0-0.2 eCW1 ([facility]) 3.9 1.5-8.5 eCW1 ([facility]) 0.1 0.0-0.5 eCW1 ([facility]) 0.6 0.0-0.8 eCW1 ([facility]) ID Date Data Source COMPLEMENT C4 09/03/2020 12:00:00 AM EST eCW1 ([facility]) Name Value Range Interpretation Code Description Data Trish rce(s) Supporting Document(s) 24 10-40 eCW1 ([facility]) ID Date Data Source COMPLEMENT C3 09/03/2020 12:00:00 AM EST eCW1 ([facility]) Name Value Range Interpretation Code Description Data Trihs rce(s) Supporting Document(s) 24 22-180 eCW1 ([facility]) ID Date Data Source [id number] 08/29/2020 12:00:00 AM EST [facility] Patient Name: DALI [id number] 1960[facility] [place] [address]- Date of Exam: 08/29/2020#: Fax: [phone] EXAM: CT CERVICAL SPINE WITHOUT&WITH CONTRASTPROCEDURE INFORMATION:Exam: CT Neck Without and With ContrastExam date and time: 08/29/2020 11:24 AM Age: 59 years oldClinical indication: Mass, lump or swelling in neckTECHNIQUE: Imaging protocol: Computed tomography images of the neck withoutand with intravenous contrast. Radiation optimization: [facility] CT scans at [facility] use at least one of these dose optimization techniques: autom atedexposure control; mA and/or kV adjustment per patient size (includestargeted exams where dose is matched to clinical indication); or iterativereconstruction. Contrast material: OPTIRAY 320; Contrast volume: 75 ml;Contrast route: INTRAVENOUS (IV);COMPARISON: No relevant prior studies available.FINDINGS:Nasopharynx: Unremarkable.Oropharynx: No significant tonsillar enlargement. No abscess.Calcifications left tonsil are typically postinflammatory and notclinically significant.Hypopharynx: Unremarkable.Larynx: Unremarkable. Normal epiglottis.Retropharyngeal space: Unremarkable.Submandibular/Parotid glands: Normal. Glands are normal in size.Thyroid: There is punctate 3 mm calcification in region of right thyroidbed. No noncalcified nodules identified.Lymph nodes: Unremarkable. No lymphadenopathy.Trachea: Visualized trachea is unremarkable.Lungs: Pulmonary apices are clear.Bones/joints: No significant disc protrusion. No spinal canal stenosis. Nosignificant neural foraminal narrowing.Vasculature: Bilateral carotid arteries appear widely patent withoutstenosis.Soft tissues: A marker is present along posterior soft tissues of rightside of neck at the C2-C3 level. At level of marker, there is no visibleasymmetry or focal mass identified on basis of CT. Intramuscular masseswhich are isodense to muscle can be difficult to evaluate with CT andconsider follow-up MRI if clinical findings remaining bing picious for massIMPRESSION:No visible posterior cervical mass at level of marker. If continued concernfor mass, consider MRI.Thank you for allowing us to participate in the care of your patient.Dictated and Authenticated by: Stephanie Mchugh MD 08/29/2020 12:45 PMEastern Time ([place] & [place])VradV/vasucTwillk you for referring DANNY EATON to our office. 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 [file] [facility]qcsdnDsNFpdwYDKuqooh00wDR6dZN [file] iyCDMaFQBJLWzeU3i2f6zr9isqOybO9qOkNmhuEIgfK7U+8pxo/TFPppb2qquDmT5/xQiLcnbV2/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/ [file] [facility]+x67/bARQGJ/opTAw2mHyxRqfQX65ZzHtvc7V6slx9acjb9gsx/iLbarBvv1Roned02LYKNa [file] ATbHSi4/Modern Languages Professor/DCOf/H0FaO2dR4VMOCdHrdq/RmsTbmz [file] W5LYsAdNMvqGClzgpo73080yj+NJeNHKdNHLrQ6n4V75X7xyl53mzQXvU+Pc0Dc38YAQL+drop count associate+7eFYgW [file] 1N9uf+o1bGn2xLlO49Xm+5GZvDO5toxb6fCjky5CfqL0aSckTvlel1minN/QS4UF/d5kWRZ5W5kR+ESTER BYWiematqvy5drBQpJgdEIQvJx8ZUtStY2tHjPwZ7BCKmkYwgfKZZGrZ+R1BnVW+CMXZyVBM4N/81//p H//4/yBEd3P/BurQQ3AIYdNjPXK9qnZpkO8zyoLxBl iPBTGxAS9uxx11SD5EBE3wePllGyT+NyJ9zxEeiF0GeEl5PIXxLQDrBBz5TtBxXEXgM26SL2nyQhVlZF 2UII2IJE5nw1VbCAPhFZDgTC7eaw0uQFIsCL4grj09JV2GdNx4SWYyP9KmNGUuSDRjv3VjM5jbrhc1uD K9HV8FALGpMFInCxmaMVFyPmkXYIfTZfAKWAZtJMN7 [id number]+[id number] Wj0fDwQsFXVrQ0o9PZStYH3JpEByZX6WMrAmF7zkTyTaLAAkQV8+j9XdGKZcIMb40xEgCYQcDxBHpuJx 4cCKWDzZhheGDJNlMaqlYaxjOAu1l2Vo3h6KZT40Of JBBoLfDOQ5gpCpfK9LYY6rb0ShOW6Cx4XhqqG1jtKtFSj1Ixv3VgXWBkRjIF9E Procedure Social History Code Duration Value Status Description Data Source(s ) Smoking 09/03/2020 12:00:00 AM EST Current Smoker completed Curre nt Smoker eCW1 ([facility]) Smoking 09/03/2020 12:00:00 AM EST Current Smoker completed Curre nt Smoker eCW1 ([facility]) Vital Signs ID Date Data Source UNK Name Value Range Interpretation Code Description Data Source(s) Diastolic blood pressure 86 mm[Hg] 86 mm[Hg] eCW1 ([facility]) Systolic blood pressure 132 mm[Hg] 132 mm[Hg] e CW1 ([facility]) Body temperature 97.0 [degF] 97.0 [degF] eCW1 ( [facility]) Respiratory rate 18 /min 18 /min eCW1 ([facility]) Heart rate 66 /min 66 /min eCW1 ([facility]) Body mass index (BMI) [Ratio] 22.24 kg/m2 22.24 kg/m2 eCW1 ([facility]) Body height 66 [in_i] 66 [in_i] eCW1 ([facility]) Body weight 62.5 kg 62.5 kg eCW1 ([facility]) Body weight 137.8 [lb_av] 137.8 [lb_av] eCW1 ([facility]) ID Date Data Source [id number] 10/21/2020 06:34:12 PM EST [facility] Name Value Range Interpretation Code Description Data Source(s) WEIGHT RECORDED 135.00 pounds 135.00 pounds [facility] Height 66 Inches 066 Inches [facility] Patient Treatment Plan of Care Planned Activity Planned Date Details Description Data Source (s) Acetaminophen 500 MG 09/03/2020 12:00:00 AM EST eCW1 ([facility]) Acetaminophen 500 MG 09/03/2020 12:00:00 AM EST eCW1 ([facility])
[2020-10-25] MEDS ORDERED: MAG SULF 1GM/100ML (MAG RUN) 1 GM in IV 1 EA IV ONE ×2 (17:15→18:45)
[2020-10-25] MEDS ORDERED: PROCHLORPERAZINE 5 MG TAB (S0183) PO ONE (17:15)
[2020-10-25] MEDS ORDERED: KETOROLAC 30 MG/ML 1ML VIAL IV ONE (17:15)
[2020-10-25] MEDS ORDERED: NS 1,000 ML IV ONE (17:15)
[2020-10-25] MEDS ORDERED: diphenhydrAMINE 50MG/ML VIAL (J1200) IV ONE (17:15)
[2020-10-25] MEDS ORDERED: PROCHLORPERAZINE 10MG/2ML VIAL (J0780 PER 1) IV ONE (18:00)
[2020-10-25 18:14] LABS: BASO % 0.2 % (0.0-1.0); HEMATOCRIT 37.7 % (36.0-47.0); HEMOGLOBIN 12.4 g/dl (12.0-15.5); LYMPH # 0.9 10^3/uL (1.5-5.0); LYMPH % 10.3 % (24.0-44.0); MEAN CORPUSCULAR HGB CONC 32.9 g/dl (32.0-36.5); MEAN CORPUSCULAR VOLUME 91.1 fl (80.0-96.0); MONO # 0.2 10^3/uL (0.0-0.8); MONO % 2.4 % (0.0-5.0); NEUTROPHILS # 7.3 10^3/uL (1.5-8.5); NEUTROPHILS % 86.6 % (36.0-66.0); PLATELET COUNT, AUTOMATED 255 10^3/uL (150-450); RED BLOOD COUNT 4.14 10^6/uL (4.00-5.40); WHITE BLOOD COUNT 8.4 10^3/uL (4.0-10.0)
[2020-10-25 18:30] LABS: MAGNESIUM LEVEL 1.7 MG/DL (1.8-2.4)
[2020-10-25] MEDS ORDERED: MAGNESIUM SULFATE 1GM/100ML D5W BAG (10MG/ML) As Ordered ONE (18:44)
--- NOTE | 2020-10-25 20:38 | ECGEPIP ---
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
[2020-10-25] MEDS ORDERED: ONDANSETRON 4MG/2ML VIAL IV ONE (20:45)
[2020-10-25] MEDS ORDERED: FAMO40TA3 PO (20:55)
[2020-10-25] MEDS ORDERED: VITA1CAP25 PO (20:55)
[2020-10-25] MEDS ORDERED: lisinopriL 10 MG TAB PO SCH (21:00)
[2020-10-25] MEDS ORDERED: ATORVASTATIN 10 MG TAB PO SCH (21:00)
[2020-10-25] MEDS ORDERED: FAMOTIDINE 20 MG TAB PO SCH (21:00)
[2020-10-25] MEDS ORDERED: ACETAMINOPHEN TAB 650MG DOSE (2X325MG) PO PRN (21:45)
[2020-10-25] MEDS: ONDANSETRON 4MG/2ML VIAL IV SCH (21:45)
[2020-10-25] MEDS: NS 1,000 ML IV SCH (22:10)
[2020-10-25 22:23] LABS: RSV AMPLIFICATION NEGATIVE (NEGATIVE)
[2020-10-25 22:47] LABS: FREE T4 1.35 NG/DL (0.76-1.46); THYROID STIMULATING HORMONE 0.102 uIU/ML (0.358-3.740)
[2020-10-26] MEDS: ONDANSETRON 4MG/2ML VIAL IV SCH ×2 (03:45→10:03)
--- NOTE | 2020-10-26 04:20 | HPEPDOC ---
[facility] Medical History & Physical Date of Admission Oct 25, 2020 Date of Service: Oct 25, 2020 Attending Physician: Patricia Corea DO History and Physical CHIEF COMPLAINT: Migraine, nausea and vomiting HISTORY OF PRESENT ILLNESS:. Patient is a 60-year-old female with a past medical history significant for migraines, synovial chondromatosis, hypertension, hyperlipidemia who presented to the [facility] emergency department originally with a complaint of migraine headaches with nausea and vomiting. Patient stated that her migraine started earlier the day and did not go away. She also developed nausea and vomiting and was unable to keep anything down for the entire day. She presented to the [facility] emergency department as she continued to have a migraine as well as the nausea vomiting with inability to tolerate anything by mouth. At the emergency, the patient was vitally stable. She was noted to have continuous nausea, vomiting or retching. Patient was given Compazine, which helped relieve her migraine. The patient continued to have some retching. During the course of the patient's ER stay she was noted to become bradycardic with a heart rate of as low as 38. Patient herself denied any complaints. She denies any chest pain, shortness of breath or feelings of dizziness or lightheadedness. Hospitalist service was consulted and the patient was admitted for further evaluation and management of her bradycardia PAST MEDICAL HISTORY: 1. Migraine headaches. 2. Synovial chondromatosis. 3. Hypertension 4. Hyperlipidemia. PAST SURGICAL HISTORY: 1. Hysterectomy. 2. Over 21, joint surgeries for her synovial chondromatosis. 3. Knee replacement. 4. Dermoid cyst removal. SOCIAL HISTORY: Patient currently lives at home alone. She smokes approximately a half a pack per day. She started smoking 7 years ago. She denies any alcohol use. She denies any other IV or illicit drug use. FAMILY HISTORY: Patient denies any history of cardiac disease in her family. She was to a family history of colon cancer. ALLERGIES: Please see below. REVIEW OF SYSTEMS: CONSTITUTIONAL: Denies fevers, chills, unintentional weight loss or weight gain. Denies any night sweats.. HEENT: Denies dysphagia or odynophagia. Admits to migraine.. CARDIOVASCULAR: Denies chest pain or palpitations. Denies feelings of the heart racing. RESPIRATORY: Denies shortness of breath. Denies cough. Denies wheezing. GASTROINTESTINAL: Abdominal pain. Admits to nausea, vomiting, inability tolerate by mouth. GENITOURINARY: Denies dysuria or increased frequency. Denies urgency. SKIN: Denies rashes or lesions. MUSCULOSKELETAL: Admits to chronic joint pains from her synovial chondromatosis. NEUROLOGICAL: Denies any changes in vision. Denies any changes in gait. Denies any changes in speech. PSYCHIATRIC:. Admits to a history of depression. ENDOCRINE: Denies heat intolerance or cold intolerance. Denies history of diabetes HEMATOLOGIC/LYMPHATIC:. Denies easy bruising, bleeding. denies history of DVT or pulmonary embolism. HOME MEDICATIONS: Please see below. PHYSICAL EXAMINATION: VITAL SIGNS: Temperature 97.1, pulse 46, respiratory rate 16, blood pressure 146/71, pulse oximetry 100 % on room air. GENERAL APPEARANCE: Patient is awake, alert oriented. She does not appear in acute distress. She is lying in bed comfortably. HEENT: Atraumatic normocephalic. Eyes are nonicteric. Trachea is midline. Mucous membranes are pink and moist. CARDIOVASCULAR:. Normal S1, S2. There is a bradycardic rate is a regular rhythm. No clicks rubs or murmurs are auscultated. LUNGS:. Clear vesicular breath sounds bilaterally. Good respiratory effort. No wheezes rhonchi or rales. ABDOMEN:. Soft nondistended, nontender. Normoactive bowel sounds. EXTREMITIES: No edema. Full equal pulses bilateral upper and lower extremities. NEUROLOGICAL:. No focal Neurological deficits. PSYCHIATRIC: Mood and Affect appear appropriate for situation. LABORATORY DATA: See below. MICROBIOLOGY: Please see below. ASSESSMENT: Patient is a 60-year-old female with a past medical history significant for migraine headaches, synovial chondromatosis, hypertension, hyperlipidemia who presented to the [facility] emergency department with a complaint of migraine headache with nausea, vomiting. During her stay in the emergency department she was noted to become bradycardic PLAN: 1. Intractable migraine with nausea, vomiting -Patient presented with intractable migraine with nausea, vomiting and inab ility tolerate by mouth. She received Compazine and Toradol in the ER. It appears that her migraine has since resolved. She did continue to have some nausea vomiting. She's been given additional doses of Zofran. Additionally, patient has been given IV fluid resuscitation. -Will continue IV fluids -Will continue Zofran when necessary for nausea vomiting -Can advance diet as tolerated -Will give Protonix IV for nausea, vomiting 2. Sinus bradycardia -Patient was noted to develop sinus bradycardia while in the emergency department. Her lowest documented rate was approximately 36. The patient was asymptomatic throughout. -Etiology unclear however, the patient has been vomiting and retching and therefore could be secondary to exaggerated vagal activity. She is not any beta blockers at home or any other medications that could lead to bradycardia. -Patient does have hypothyroidism. However, she is on Synthroid and well- maintained. -Will place on chief client officer overnight. -Electrolytes within normal range with exception to hypomagnesemia. However, bradycardias are typically not seen with hypomagnesemia as they are typically seen with hypermagnesemia. 3. Hypomagnesemia -Will monitor and replace when necessary 4. Hypothyroidism -Continue Synthroid 5. Hypertension -Continue lisinopril 6. Hyperlipidemia -Continue atorvastatin 7. DVT prophylaxis -Lovenox Vital Signs Vital Signs Date Time Temp Pulse Resp B/P (MAP) Pulse Ox O2 Delivery O2 Flow Rate FiO2 10/26/20 01:15 38 134/72 (92) 100 Room Air 10/26/20 00:15 16 10/25/20 19:44 97.1 Laboratory Data Labs 24H Laboratory Tests 2 10/25/20 17:53: POC Glucose (Misc Panel) 138H, POC Sodium (Misc Panel) 141, POC Potassium (Misc Panel) 3.7, POC Chloride (Misc Panel) 105, POC Total CO2 (Misc Panel) 25.0, POC Blood Urea Nitrogen (Misc Panel 15, POC Ionized Calcium (Misc Panel) 4.8, POC Creatinine (Misc Panel) 0.6, POC Hematocrit (Misc Panel) 39.0 10/25/20 17:54: Immature Granulocyte % (Auto) 0.5, Neutrophils (%) (Auto) 86.6H, Lymphocytes (%) (Auto) 10.3L, Monocytes (%) (Auto) 2.4, Eosinophils (%) (Auto) 0.0, Basophils (%) (Auto) 0.2, Neutrophils # (Auto) 7.3, Lymphocytes # (Auto) 0.9L, Monocytes # (Auto) 0.2, Eosinophils # (Auto) 0.0, Basophils # (Auto) 0.0, Nucleated Red Blood Cells % (auto) 0.0, Magnesium Level 1.7L, Thyroid Stimulating Hormone (TSH) 0.102L, Free Thyroxine 1.35 10/25/20 21:29: Coronavirus (COVID-19)(PCR) NEGATIVE, Influenza Type A (RT-PCR) NEGATIVE, Influenza Type B (RT-PCR) NEGATIVE, Respiratory Syncytial Virus (PCR) NEGATIVE CBC/BMP Laboratory Tests 10/25/20 17:54 Home Medications Scheduled Atorvastatin Calcium (Atorvastatin Calcium) 10 Mg Tablet, 10 MG PO QHS Celecoxib (Celecoxib) 200 Mg Capsule, 200 MG PO BID Cholecalciferol (Vitamin D3) (Vitamin D3) 1,250 Mcg Capsule, 1,250 MCG PO QWEEK WEDNESDAY Famotidine (Famotidine) 40 Mg Tablet, 40 MG PO QHS Levothyroxine Sodium (Synthroid) 100 Mcg Tablet, 100 MCG PO DAILY Lisinopril (Lisinopril) 10 Mg Tablet, 10 MG PO QHS Allergies Coded Allergies: sumatriptan (Verified Allergy, Unknown, seizure, 09/07/19) A-FIB/CHADSVASC A-FIB History Current/History of A-Fib/PAF?: No SANTY VASQUEZ DO Oct 26, 2020 04:20
[2020-10-26] MEDS: NS 1,000 ML IV SCH (05:57)
[2020-10-26] MEDS ORDERED: LEVOTHYROXINE 100MCG TABLET (0.1MG) PO SCH (06:00)
[2020-10-26 07:31] LABS: HEMATOCRIT 34.9 % (36.0-47.0); HEMOGLOBIN 11.3 g/dl (12.0-15.5); MEAN CORPUSCULAR HEMOGLOBIN 29.9 pg (27.0-33.0); MEAN CORPUSCULAR HGB CONC 32.4 g/dl (32.0-36.5); MEAN CORPUSCULAR VOLUME 92.3 fl (80.0-96.0); PLATELET COUNT, AUTOMATED 231 10^3/uL (150-450); RED BLOOD COUNT 3.78 10^6/uL (4.00-5.40); WHITE BLOOD COUNT 11.5 10^3/uL (4.0-10.0)
[2020-10-26 07:53] LABS: BLOOD UREA NITROGEN 16 MG/DL (7-18); CALCIUM LEVEL 8.9 MG/DL (8.8-10.2); CARBON DIOXIDE LEVEL 27 MEQ/L (21-32); CHLORIDE LEVEL 105 MEQ/L (98-107); CREATININE FOR GFR 0.71 MG/DL (0.55-1.30); GLOMERULAR FILTRATION RATE > 60.0 (>45); GLUCOSE, FASTING 107 MG/DL (70-100); MAGNESIUM LEVEL 1.9 MG/DL (1.8-2.4); POTASSIUM SERUM 3.8 MEQ/L (3.5-5.1); SODIUM LEVEL 138 MEQ/L (136-145)
[2020-10-26] MEDS ORDERED: MAXA10TA14 PO (08:42)
[2020-10-26] MEDS ORDERED: PANTOPRAZOLE 40MG VIAL (C9113 PER 1) IV SCH (09:00)
[2020-10-26] MEDS ORDERED: ENOXAPARIN 40MG/0.4ML SYRINGE (J1650 PER 10MG) SC SCH (09:00)
[2020-10-26] MEDS ORDERED: TOPA1TAB PO (09:29)
[2020-10-26] MEDS ORDERED: ZOFR4TAB16 PO (09:29)
[2020-10-26] MEDS ORDERED: TOPIRAMATE (TopAMAX) 25 MG TAB PO SCH (09:30)
[2020-10-26 10:12] VITALS: BP 141/90
--- NOTE | 2020-10-26 10:16 | DS.PDOC ---
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 ENA HUNT-RECOMMENDED treatment of migraine, nausea/vomiting induced bradycardia,no treatment needed. DISCHARGE INSTRUCTIONS; pcp fu 7days pcp to send referral for migraine management by neurologist. HOSPITAL COURSE: 60-year-old female with a past medical history significant for migraines, synovial chondromatosis, hypertension, hyperlipidemia who presented to the [facility] emergency department originally with a complaint of migraine headaches with nausea and vomiting. Patient stated that her migraine started earlier the day and did not go away. She also developed nausea and vomiting and was unable to keep anything down for the entire day. She presented to the [facility] emergency department as she continued to have a migraine as well as the nausea vomiting with inability to tolerate anything by mouth. At the emergency, the patient was vitally stable. She was noted to have continuous nausea, vomiting or retching. Patient was given Compazine, which helped relieve her migraine. The patient continued to have some retching. During the course of the patient's ER stay she was noted to become bradycardic with a heart rate of as low as 38. Patient herself denied any complaints. She denies any chest pain, shortness of breath or feelings of dizziness or lightheadedness. Hospitalist service was consulted and the patient was admitted for further evaluation and management of her bradycardia HOSPITAL COURSE: Patient was hemodynamically stable with blood pressure of 120-145 mmhg systolic with resolution of migraines. EKG: sinus bradycardia without 2nd or 3rd degree heart block and no sinus pause on telemetry. She received one liter ivfluids. TSH was low with normal free t4. pt ambulated around the nurse's station 2x without hemodynamic changes. Pt's bradycardia was asymptomatic and co-incident with episodes of nausea with migraine. She was instructed to take antiemetics, maxalt prn, and low dose topamax bid. She may get drowsy on topamax and instructed to not drive motorized vehicle if becomes drowsy. outpt referral to neurologist for migraine mgt to be done by pcp. DISCHARGE PHYSICAL EXAMINATION VITALS: SEE BELOW GENERAL APPEARANCE: awake, alert oriented. talking on the phone laughing. HEENT: Atraumatic normocephalic. Eyes are nonicteric. Trachea is midline. Mucous membranes are pink and moist. CARDIOVASCULAR:. Normal S1, S2. sinus bradycardia no murmurs LUNGS:. AEBE CTAB No wheezes rhonchi or rales. ABDOMEN:. Soft nondistended, nontender. Normoactive bowel sounds. EXTREMITIES: No edema. Full equal pulses bilateral upper and lower extremities. NEUROLOGICAL:. No focal Neurological deficits. PSYCHIATRIC: Mood and Affect appear appropriate for situation. DISCHARGE LABORATORY DATA: SEE BELOW TIME SPENT ON DISCHARGE: 30 MINUTES Vital Signs/I&Os Vital Signs Date Time Temp Pulse Resp B/P (MAP) Pulse Ox O2 Delivery O2 Flow Rate FiO2 10/26/20 08:30 62 129/66 (87) 100 10/26/20 07:45 18 Room Air 10/26/20 06:15 98.1 I&O- Last 24 Hours up to 6 AM 10/26/20 06:00 Intake Total 1100 ml Balance 1100 ml Laboratory Data Labs 24H Laboratory Tests 2 10/25/20 17:53: POC Glucose (Misc Panel) 138H, POC Sodium (Misc Panel) 141, POC Potassium (Misc Panel) 3.7, POC Chloride (Misc Panel) 105, POC Total CO2 (Misc Panel) 25.0, POC Blood Urea Nitrogen (Misc Panel 15, POC Ionized Calcium (Misc Panel) 4.8, POC Creatinine (Misc Panel) 0.6, POC Hematocrit (Misc Panel) 39.0 10/25/20 17:54: Immature Granulocyte % (Auto) 0.5, Neutrophils (%) (Auto) 86.6H, Lymphocytes (%) (Auto) 10.3L, Monocytes (%) (Auto) 2.4, Eosinophils (%) (Auto) 0.0, Basophils (%) (Auto) 0.2, Neutrophils # (Auto) 7.3, Lymphocytes # (Auto) 0.9L, Monocytes # (Auto) 0.2, Eosinophils # (Auto) 0.0, Basophils # (Auto) 0.0, Nucleated Red Blood Cells % (auto) 0.0, Magnesium Level 1.7L, Thyroid Stimulating Hormone (TSH) 0.102L, Free Thyroxine 1.35 10/25/20 21:29: Coronavirus (COVID-19)(PCR) NEGATIVE, Influenza Type A (RT-PCR) NEGATIVE, Influenza Type B (RT-PCR) NEGATIVE, Respiratory Syncytial Virus (PCR) NEGATIVE 10/26/20 07:16: Nucleated Red Blood Cells % (auto) 0.0, Magnesium Level 1.9, Anion Gap 6L, Glomerular Filtration Rate > 60.0, Calcium Level 8.9 CBC/BMP Laboratory Tests 10/25/20 17:54 10/26/20 07:16 Discharge Medications Scheduled Atorvastatin Calcium (Atorvastatin Calcium) 10 Mg Tablet, 10 MG PO QHS, (Reported) Celecoxib (Celecoxib) 200 Mg Capsule, 200 MG PO BID, (Reported) Cholecalciferol (Vitamin D3) (Vitamin D3) 1,250 Mcg Capsule, 1,250 MCG PO QWEEK, (Reported) WEDNESDAY Famotidine (Famotidine) 40 Mg Tablet, 40 MG PO QHS, (Reported) Levothyroxine Sodium (Synthroid) 100 Mcg Tablet, 100 MCG PO DAILY, (Reported) Lisinopril (Lisinopril) 10 Mg Tablet, 10 MG PO QHS, (Reported) Rizatriptan Benzoate (Maxalt) 10 Mg Tablet, 1 TAB PO ASDIRECTED for headache Topiramate (Topamax) 25 Mg Tablet, 1 TAB PO BID Scheduled PRN Ondansetron HCl (Zofran) 4 Mg Tablet, 1 TAB PO Q6-8HP PRN for nausea/vomiting Allergies Coded Allergies: sumatriptan (Verified Allergy, Unknown, seizure, 09/07/19) TEENA GARVEY MD Oct 26, 2020 10:10
--- NOTE | 2020-10-26 12:41 | ECGEPIP ---
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 Nonspecific ST/T wave abnormalities. Faster rate but otherwise unchanged from 10/25/20 Electronically Signed on 10-26-2020 12:40:54 EST by Sagar Ford
[2020-10-27] MEDS ORDERED: LEVOTHYROXINE 75MCG TABLET (0.075MG) PO SCH (06:00)
== END 2020-10-26 10:21 | disposition home or self-care (01) ==
LOC: M ED 16:11 → M ED INP 21:39
DX: R11.0 Nausea (principal); R00.1 Bradycardia, unspecified; M67.88 Other specified disorders of synovium and tendon, other site; E83.42 Hypomagnesemia; I10 Essential (primary) hypertension; E78.49 Other hyperlipidemia; G43.909 Migraine, unspecified, not intractable, without status migrainosus; F17.218 Nicotine dependence, cigarettes, with other nicotine-induced disorders; Z79.899 Other long term (current) drug therapy; E03.9 Hypothyroidism, unspecified; Z88.8 Allergy status to other drugs, medicaments and biological substances
CPT/HCPCS: 36415; 80047; 80048; 83735; 84439; 84443; 85025; 85027; 87631; 93005; 96361; 96374; 96375; 96376; 99285; C9113; J0780; J1200; J1885; J2405; J3475

== ENCOUNTER → 2020-11-07 | Outpatient (CLI) | payer OTHER ==
[~2020-11-07] MED LIST changes: +CELE1CAP9 PO; +FAMO40TA3 PO; +MAXA10TA14 PO; +TOPA1TAB PO; +VITA1CAP25 PO; +ZOFR4TAB16 PO
--- NOTE | 2020-11-07 14:56 | DEXAMM ---
INDICATION: Z78.0 MENOPAUSAL STATE. COMPARISON: None. TECHNIQUE: Bone density was measured using dual-energy x-ray absorptionmetry (DEXA). FINDINGS: AP SPINE L1-L4 BMD 1.258 g/cm2 Young Adult T-Score is 0.5 Age Matched Z-Score 1.8. LT FEMUR, TOTAL BMD 0.937 g/cm2 Young Adult T-Score -0.6 Age Matched Z-Score 0.4. LT NECK BMD 0.961 g/cm2 Young Adult T-Score -0.6 Age Matched Z-Score 0.7. RT FEMUR, TOTAL BMD 0.894 g/cm2 Young Adult T-Score -0.9 Age Matched Z-Score 0.1. RT NECK BMD 0.911 g/cm2 Young Adult T-Score -0.9 Age Matched Z-Score 0.4. IMPRESSION: There is normal bone density of the spine. There is normal bone density of the left hip. There is normal bone density of the right hip. FOLLOW-UP: Recommendation for the next bone density exam: 5 years.. <Electronically signed by Kj Yanes > 11/07/20 [id number]
== END ==
LOC: M WHC 12:45
PROVIDERS: ATTEND Internal Medicine
DX: Z78.0 Asymptomatic menopausal state (principal)

== ENCOUNTER → 2020-11-15 | Outpatient (CLI) | payer OTHER ==
--- NOTE | 2020-11-15 20:32 | REP ---
INDICATION: RT HIP PAIN W/ JOINT DERANGEMENT / SPONDYLOSIS injury December 2019 in March 2020, pain COMPARISON: None. TECHNIQUE: Coronal T1, STIR through the pelvis, axial, coronal, sagittal T2 fat sat right hip. FINDINGS: There is diffuse moderate chondromalacia. There is mild subchondral marrow edema and cystic change in the acetabulum and femoral head. There is moderate spurring of the acetabulum and femoral head. There is no occult fracture. There is no avascular necrosis. There is diffuse fraying of the superior labrum. There is a tear of the anterior labrum. There is a moderate joint effusion. There are findings compatible with mild greater trochanteric tendonobursitis. There is a an oval cyst in the right obturator internus muscle which measures 0.6 X 2.4 x 0.8 cm. The wide field of view images also show moderate degenerative changes at the left hip joint, of similar degree to the right hip joint. IMPRESSION: Moderate arthritic changes of the right hip joint as discussed in detail above. Diffuse fraying of the superior labrum. There is a tear of the anterior labrum. There is a moderate joint effusion. There is mild greater trochanteric tendonobursitis. <Electronically signed by Kyle Brito > 11/15/202027
--- NOTE | 2020-11-16 00:32 | REPVR ---
PROCEDURE INFORMATION: Exam: MR Lumbar Spine Without Contrast Exam date and time: 11/15/2020 6:33 PM Age: 60 years old Clinical indication: Pain and condition or disease; Spondylosis, lumbosacral; Lumbar sacral region; Without myelopathy or radiculopathy; Low back pain; Additional info: RT hip pain w/ joint derangement / spondylosis TECHNIQUE: Imaging protocol: Multiplanar magnetic resonance images of the lumbar spine without intravenous contrast. COMPARISON: No relevant prior studies available. FINDINGS: Vertebrae: Normal lumbar lordosis and vertebral body heights. 2 mm L3-L4 anterolisthesis, and 3 mm L4-L5 retrolisthesis. Spinal cord: Normal signal. No cord compression. Multilevel findings: Diffuse degenerative disc desiccation, disc height loss, and associated degenerative endplate marrow signal changes most severe at L3-L5. T11-T12: T11-T12 small disc bulge with disc desiccation and height loss. L1-L2: No significant disc disease. No significant spinal canal stenosis. No neural foraminal stenosis. L2-L3: Mild facet arthropathy and ligamentum flavum thickening with minimal foraminal narrowing. L3-L4: Asymmetric left disc bulge, osteophyte, and moderate facet arthropathy, and ligamentum flavum thickening causes moderate left subarticular and moderate to severe left subarticular stenosis. Moderate spinal and mild right foraminal stenosis. L4-L5: Disc bulge and osteophyte with moderate facet arthropathy. Disc material protrudes into the right foramina and far posterolateral region. Mild moderate spinal, moderate to severe subarticular, severe right foraminal and moderate left foraminal stenosis. L5-S1: Mild facet arthropathy. No stenosis. Soft tissues: Unremarkable. IMPRESSION: Degenerative disc and joint disease most severe at L3-L5. At most, severe foraminal and moderate spinal stenosis. Substantial right-sided L3-L4, and left L4-L5 foraminal and subarticular stenosis. Electronically signed by: Walt Vickers On 11/16/2020 00:32:35 AM
== END ==
LOC: M RAD 17:05
PROVIDERS: ATTEND Internal Medicine
DX: M51.26 Other intervertebral disc displacement, lumbar region (principal); M25.78 Osteophyte, vertebrae; M25.851 Other specified joint disorders, right hip; M47.816 Spondylosis without myelopathy or radiculopathy, lumbar region; M16.11 Unilateral primary osteoarthritis, right hip

== ENCOUNTER → 2020-11-18 | Outpatient (CLI) | payer OTHER ==
--- NOTE | 2020-11-18 21:34 | REPVR ---
PROCEDURE INFORMATION: Exam: MR Thoracic Spine Without Contrast Exam date and time: 11/18/2020 4:58 PM Age: 60 years old Clinical indication: Abnormal findings; Bone lesion, thoracic vertebrae; Additional info: Newly indentified wedge compression FX on xray TECHNIQUE: Imaging protocol: Multiplanar magnetic resonance images of the thoracic spine without contrast. COMPARISON: No relevant prior studies available. FINDINGS: Vertebrae: Slight anterolisthesis of T2 on T3. Mild compression deformity at T11. No marrow space signal abnormalities which might suggest an acute or subacute compression fracture. Spinal cord: Normal signal. No cord compression. Discs/Spinal canal/Neural foramina: Left paracentral disc protrusion T2-3 without neural compromise. Seven a bilateral posterolateral disc protrusions at T7-T8 resulting in a moderate posterolateral degenerative spinal stenosis. Left paracentral disc protrusion at T8-T9 effaces the ventral subarachnoid space on the left without neural impingement. Broad annular bulge T11-T12 effaces the ventral subarachnoid space without neural compromise. Soft tissues: Unremarkable. IMPRESSION: 1. Left paracentral disc protrusion T2-3 without neural compromise. 2. Seven a bilateral posterolateral disc protrusions at T7-T8 resulting in a moderate posterolateral degenerative spinal stenosis. 3. Left paracentral disc protrusion at T8-T9 effaces the ventral subarachnoid space on the left without neural impingement. 4. Mild chronic compression deformity of T11. 5. Broadly bulging annulus at T11-T12 effaces the ventral subarachnoid space without neural compromise. Electronically signed by: Jack Turner On 11/18/2020 21:34:52 PM
== END ==
LOC: M RAD 15:37
PROVIDERS: ATTEND Internal Medicine
DX: M48.04 Spinal stenosis, thoracic region (principal); M51.24 Other intervertebral disc displacement, thoracic region; M51.34 Other intervertebral disc degeneration, thoracic region; S22.080A Wedge compression fracture of T11-T12 vertebra, initial encounter for closed fracture

== ENCOUNTER → 2021-04-21 | Outpatient (CLI) | payer OTHER ==
--- NOTE | 2021-04-21 14:30 | REPMRS ---
Patient History The patient states she has not had a clinical breast exam in over a year. Patient is postmenopausal. No known family history of cancer. Took estrogen for 36 years. Patient states no breast complaints today. Patient has signed MRS History Sheet. Digital Woman Screen Mammo: April 21, 2021 - Exam #: [id number] Bilateral CC and MLO view(s) were taken. Technologist: Odilia Peña, Technologist Prior study comparison: November 09, 2019, bilateral digital woman screen mammo performed at [facility]. August 18, 2018, bilateral digital mammo screening bilat, performed at [facility]. FINDINGS: The breast tissue is heterogeneously dense. This may lower the sensitivity of mammography. Screening. Digital screening (2D) mammography was performed bilaterally in the CC and MLO projections. Additionally, breast tomosynthesis (3D mammography) was performed bilaterally in the CC and MLO projections. Todays exam was compared to the prior exam/exams. By history, the patient has no complaints of a palpable breast abnormality or other significant breast complaints. The breasts are unchanged in size and shape.Once again, dense heterogenous fibroglandular elements are seen bilaterally in a stable appearing pattern but to such a degree that the sensitivity of the mammogram in detecting cancer is decreased. There are no brent-soft tissue densities or spiculated masses. There is no internal architectural distortion. Once again, stable benign appearing calcifications are seen.There are no suspicious brent-calcific clusters. Skin thickening or nipple retraction is not present. IMPRESSION: BI-RADS Category 2- Benign Findings. There is no evidence of malignant alteration of the breasts. Followup examination recommended in one year. The Volpara volumetric breast density category is C, the breasts are heterogenously dense which may obscure small masses. This mammogram was read with the assistance of [employer],an FDA approved computer aided detection system for mammography. The lifetime Tyrer-Cuzick score is 5.4 % Due to the density of the breasts or Tyrer Cuzick score of 20% or greater, MRI/whole breast screening ultrasound is warranted. Negative x-ray reports should not delay surgical consultation if a dominant or clinically suspicious mass is present. Not all breast cancers can be identified by mammography. Therefore, we recommend that you continue to perform regular breast self-examination and physical examination and then promptly contact your physician of any concerns or changes. Adenosis and dense breasts may obscure an underlying neoplasm. Assessment: BI-RADS/ACR category 2 mammogram. Benign Findings. Recommendation Routine screening mammogram of both breasts in 1 year. Electronically Signed By: Juan M Higginbotham DO 04/21/21 [id number]
== END ==
LOC: M WHC 10:24
PROVIDERS: ATTEND Nurse Practitioner Primary Care
DX: Z12.31 Encounter for screening mammogram for malignant neoplasm of breast (principal); R92.1 Mammographic calcification found on diagnostic imaging of breast

== ENCOUNTER → 2022-08-17 | Outpatient (CLI) | payer OTHER ==
[~2022-08-17] MED LIST changes: -MAXA10TA14 PO; +RIZA10TA64 PO
== END ==
LOC: M RAD 07:16
PROVIDERS: ATTEND Family Medicine
DX: M25.511 Pain in right shoulder (principal); S46.211A Strain of muscle, fascia and tendon of other parts of biceps, right arm, initial encounter; X58.XXXA Exposure to other specified factors, initial encounter; Y92.9 Unspecified place or not applicable; Y93.9 Activity, unspecified; Y99.9 Unspecified external cause status; S46.811A Strain of other muscles, fascia and tendons at shoulder and upper arm level, right arm, initial encounter; M94.211 Chondromalacia, right shoulder; M19.011 Primary osteoarthritis, right shoulder; M25.411 Effusion, right shoulder; M65.811 Other synovitis and tenosynovitis, right shoulder

== ENCOUNTER 2023-12-25 09:05 | Emergency (ER) | payer OTHER ==
[~2023-12-25] VITALS: Ht 167.6 cm; Wt 70.8 kg
[~2023-12-25 09:05] MED LIST changes: +CELE0.09 PO; -CELE1CAP9 PO
[2023-12-25] MEDS ORDERED: MAGN400T33 (09:27)
[2023-12-25 09:56] LABS: HEMATOCRIT 37.6 % (36.0-47.0); HEMOGLOBIN 12.7 g/dl (12.0-15.5); MEAN CORPUSCULAR HEMOGLOBIN 31.4 pg (27.0-33.0); MEAN CORPUSCULAR HGB CONC 33.8 g/dl (32.0-36.5); MEAN CORPUSCULAR VOLUME 93.1 fl (80.0-96.0); PLATELET COUNT, AUTOMATED 255 10^3/uL (150-450); RED BLOOD COUNT 4.04 10^6/uL (4.00-5.40); WHITE BLOOD COUNT 10.7 10^3/uL (4.0-10.0)
[2023-12-25] MEDS: HYDROMORPHONE HCL 0.5 MG/ 0.5 ML SYRINGE IV PRN (10:10)
[2023-12-25 10:18] LABS: BLOOD UREA NITROGEN 20 MG/DL (9-23); CALCIUM LEVEL 9.1 MG/DL (8.3-10.6); CARBON DIOXIDE LEVEL 25 MMOL/L (20-31); CHLORIDE LEVEL 109 MMOL/L (98-107); CREATININE FOR GFR 0.86 MG/DL (0.55-1.30); GLOMERULAR FILTRATION RATE > 60.0 (>45); GLUCOSE, FASTING 100 MG/DL (74-106); POTASSIUM SERUM 4.1 MMOL/L (3.5-5.1); SODIUM LEVEL 137 MMOL/L (136-145)
[2023-12-25] MEDS: diazePAM 10MG/2ML SYRINGE IV ONE (10:42)
[2023-12-25] MEDS: NS 1,000 ML IV SCH (10:54)
[2023-12-25] MEDS: propofoL 200 MG/20 ML VIAL IV.PROC PRN (11:05)
[2023-12-25] MEDS ORDERED: ONDANSETRON 4MG 2ML VIAL As Ordered ONE (12:17)
[2023-12-25] MEDS: ONDANSETRON 4MG 2ML VIAL IV ONE (12:18)
[2023-12-25 13:30] VITALS: BP 141/86
[2023-12-25 13:45] VITALS: O2SAT 98
[2023-12-25 14:01] VITALS: TEMP 97
== END 2023-12-25 14:04 | disposition home or self-care (01) ==
LOC: EDBD 09:05 → M ED 09:05
DX: S73.005A Unspecified dislocation of left hip, initial encounter (principal); X58.XXXA Exposure to other specified factors, initial encounter; Y92.009 Unspecified place in unspecified non-institutional (private) residence as the place of occurrence of the external cause; Y93.9 Activity, unspecified; Y99.9 Unspecified external cause status; I10 Essential (primary) hypertension; E78.5 Hyperlipidemia, unspecified; Z96.642 Presence of left artificial hip joint; Z79.899 Other long term (current) drug therapy; Z88.5 Allergy status to narcotic agent; Z88.8 Allergy status to other drugs, medicaments and biological substances
CPT/HCPCS: 27252; 71045; 73502; 80048; 85027; 93005; 93041; 94760; 96361; 96374; 96375; 99285; J1170; J2405; J3360